=== PATIENT | male | born 1990 | race Caucasian/White ===

== ENCOUNTER 2022-10-03 16:51 | Emergency (ER) | payer SELFPAY ==
[2022-10-03] MEDS ORDERED: Acetaminophen/oxyCODONE 325-5 MG Tab PO ONE (16:56)
== END 2022-10-03 18:50 | disposition home or self-care (01) ==
LOC: MW.ED 16:51
DX: S97.81XA Crushing injury of right foot, initial encounter (principal); Z72.0 Tobacco use; W23.0XXA Caught, crushed, jammed, or pinched between moving objects, initial encounter
CPT/HCPCS: 73600; 73630; 99283; A9270

== ENCOUNTER 2023-02-04 17:37 | Emergency (ER) | payer SELFPAY ==
[2023-02-04] MEDS ORDERED: Acetaminophen 500 MG Tab PO STA (17:45)
[2023-02-04] MEDS ORDERED: Lidocaine 4% 1 each Patch TOP STA (17:47)
== END 2023-02-04 20:11 | disposition home or self-care (01) ==
LOC: MW.ED 17:37
DX: R07.89 Other chest pain (principal)
CPT/HCPCS: 71101; 99284; A9270; 99283

== ENCOUNTER 2023-03-01 12:52 | Emergency (ER) | payer SELFPAY ==
[2023-03-01] MEDS ORDERED: Acetaminophen 500 MG Tab PO STA (15:04)
[2023-03-01] MEDS ORDERED: Ibuprofen 800 MG Tab PO STA (15:04)
[2023-03-01] MEDS ORDERED: oxyCODONE 5 MG Tab PO STA (15:16)
[2023-03-01] MEDS ORDERED: Lidocaine 1% 5 ML VIAL INJECT STA (16:07)
== END 2023-03-01 17:28 | disposition home or self-care (01) ==
LOC: MW.ED 12:52
DX: S62.324A Displaced fracture of shaft of fourth metacarpal bone, right hand, initial encounter for closed fracture (principal); S62.326A Displaced fracture of shaft of fifth metacarpal bone, right hand, initial encounter for closed fracture; W22.8XXA Striking against or struck by other objects, initial encounter
CPT/HCPCS: 26605; 73120; 99283; A9270; J3490

== ENCOUNTER 2023-07-17 18:44 | Emergency (ER) | payer SELFPAY ==
[2023-07-17] MEDS ORDERED: Acetaminophen/oxyCODONE 325-10 MG Tab PO ONE (20:12)
== END 2023-07-17 20:48 | disposition home or self-care (01) ==
LOC: MW.ED 18:44
DX: S62.324 Displaced fracture of shaft of fourth metacarpal bone, right hand (principal); X58.XXXS Exposure to other specified factors, sequela
CPT/HCPCS: 73130; 99283; A9270

== ENCOUNTER 2023-10-23 01:41 | Emergency (ER) | payer SELFPAY ==
[2023-10-23] MEDS: Diphtheria,Pertussis(Acell),Tetanus Vaccine 0.5 ML Syringe IM ONE (01:48)
[2023-10-23] MEDS: Lidocaine 1% 5 ML VIAL INJECT ONE (02:17)
== END 2023-10-23 03:11 | disposition home or self-care (01) ==
LOC: MW.ED 01:41
DX: S61.411A Laceration without foreign body of right hand, initial encounter (principal); S61.412A Laceration without foreign body of left hand, initial encounter; Z23 Encounter for immunization; F10.120 Alcohol abuse with intoxication, uncomplicated; Z75.8 Other problems related to medical facilities and other health care; X58.XXXA Exposure to other specified factors, initial encounter
CPT/HCPCS: 12001; 12002; 731202650; 73120-50; 90471; 90715; 99283; 99283-25; J3490

== ENCOUNTER 2023-12-30 23:11 | Emergency (ER) | payer SELFPAY ==
[2023-12-31 00:37] LABS: BASOPHILS ABSOLUTE AUTO 0.08 K/uL (0.00-0.20); BASOPHILS PERCENT AUTO 0.8 % (0.0-1.0); EOSINOPHILS ABSOLUTE AUTO 0.29 K/uL (0.00-0.45); EOSINOPHILS PERCENT AUTO 2.8 % (0.0-6.0); HEMATOCRIT 45.1 % (42.0-52.0); IMMATURE GRAN ABSOLUTE AUTO 0.02 K/uL (0.00-0.05); IMMATURE GRAN PERCENT AUTO 0.2 % (0.0-0.4); LYMPHOCYTES ABSOLUTE AUTO 4.17 K/uL (1.00-4.80); LYMPHOCYTES PERCENT AUTO 39.8 % (24.0-44.0); MEAN CORPUSCULAR HEMOGLOBIN 33.2 pg (28.0-32.0); MEAN CORPUSCULAR HGB CONC 35.5 g/dL (32.0-36.0); MEAN CORPUSCULAR VOLUME 93.6 fL (83.0-99.0); MEAN PLATELET VOLUME 9.7 fL (9.4-12.4); MONOCYTES ABSOLUTE AUTO 0.48 K/uL (0.00-0.80); MONOCYTES PERCENT AUTO 4.6 % (0.0-8.0); NEUTROPHILS ABSOLUTE AUTO 5.43 K/uL (1.80-7.70); NEUTROPHILS PERCENT AUTO 51.8 % (41.0-71.0); PLATELET COUNT,PLT 268 K/uL (150-400); RED BLOOD CELL COUNT 4.82 M/uL (4.52-5.90); WHITE BLOOD CELL COUNT,WBC 10.47 K/uL (3.9-11.3)
[2023-12-31] MEDS: LORazepam 2 MG/ML SDV IVPUSH ONE ×2 (00:55→01:00)
[2023-12-31 00:58] LABS: D-DIMER QUANTITATIVE 0.22 mg/L FEU (0.00-0.50); INR 0.97 (0.86-1.11)
[2023-12-31 01:00] LABS: APPEARANCE,URINE CLEAR; BILIRUBIN,URINE NEGATIVE (NEGATIVE); COLOR,URINE YELLOW; GLUCOSE,URINE NEGATIVE (NEGATIVE); KETONES,URINE NEGATIVE (NEGATIVE); LEUKOCYTE ESTERASE,URINE NEGATIVE (NEGATIVE); NITRITE,URINE NEGATIVE (NEGATIVE); OCCULT BLOOD,URINE NEGATIVE (NEGATIVE); PROTEIN,URINE NEGATIVE (NEGATIVE); UROBILINOGEN,URINE 0.2 EU/dL (<2.0)
[2023-12-31] MEDS: Sodium Chloride 0.9% 1,000 ML IV ONE (01:00)
[2023-12-31] MEDS: Sodium Chloride 0.9% 2.5 ML Syringe FLUSH PRN (01:01)
[2023-12-31] MEDS: Sodium Chloride 0.9% 10 ML Syringe FLUSH PRN (01:01)
[2023-12-31 01:04] LABS: A/G RATIO 1.1 (0.9-1.6); ALANINE AMINOTRANSFERASE,ALT 30 IU/L (14-63); ALKALINE PHOSPHATASE 97 U/L (46-116); ASPARTATE AMNIOTRANSFERASE,AST 16 IU/L (15-37); BILIRUBIN TOTAL 0.2 mg/dL (0.2-1.0); BLOOD UREA NITROGEN,BUN 9 mg/dL (7.0-18.0); CARBON DIOXIDE,CO2 22.2 mmol/L (21.0-32.0); CHLORIDE,CL 102 mmol/L (98-107); CREATININE 0.9 mg/dL (0.8-1.3); ETHANOL BLOOD MEDICAL 249 mg/dL; GLUCOSE RANDOM 126 mg/dL (74-106); MAGNESIUM 1.9 mg/dL (1.8-2.4); POTASSIUM,K 3.7 mmol/L (3.5-5.1); PROTEIN TOTAL,TP 7.8 g/dL (6.4-8.2); SODIUM,NA 139 mmol/L (136-148)
[2023-12-31 01:10] LABS: ESTIMATED GFR 117 mL/min (>60)
[2023-12-31 01:10] LABS: AMPHETAMINES SCREEN, URINE NEGATIVE (CUTOFF=500); BARBITURATE SCREEN,URINE NEGATIVE (CUTOFF=200); BENZODIAZEPINES SCREEN,URINE NEGATIVE (CUTOFF=150); BUPRENORPHINE SCREEN,URINE NEGATIVE (CUTOFF=10); METHADONE SCREEN, URINE NEGATIVE (CUTOFF=200); METHAMPHETAMINES SCREEN, URINE NEGATIVE (CUTOFF=500); OXYCODONE SCREEN,URINE NEGATIVE (CUT0FF=100); PCP SCREEN,URINE NEGATIVE (CUTOFF=25); THC SCREEN,URINE 20 NG/ML PRESUMPTIVE POSITIVE (CUTOFF=50)
[2023-12-31 01:31] LABS: LACTIC ACID 1.8 mmol/L (0.4-2.0)
[2023-12-31] MEDS: Iopamidol 755 MG/ML 500 ML Multipack Bottle IVPUSH ONE (01:58)
== END 2023-12-31 02:40 | disposition home or self-care (01) ==
LOC: MW.ED 23:11
DX: F10.129 Alcohol abuse with intoxication, unspecified (principal); R55 Syncope and collapse; F17.210 Nicotine dependence, cigarettes, uncomplicated; Z88.6 Allergy status to analgesic agent
CPT/HCPCS: 36415; 71275; 80053; 80305; 80307; 81003; 83605; 83735; 84484; 85025; 85379; 85610; 86850; 86900; 86901; 96361; 96374; 99284; J2060; J3490; J7030; Q9967; 93010

== ENCOUNTER 2024-01-01 15:53 | Emergency (ER) | payer OTHER ==
[2024-01-01] MEDS ORDERED: Sodium Chloride 0.9% 20 ML SDV IV PRN (16:10)
[2024-01-01 16:20] LABS: BASOPHILS ABSOLUTE AUTO 0.05 K/uL (0.00-0.20); BASOPHILS PERCENT AUTO 0.6 % (0.0-1.0); EOSINOPHILS ABSOLUTE AUTO 0.11 K/uL (0.00-0.45); EOSINOPHILS PERCENT AUTO 1.4 % (0.0-6.0); HEMATOCRIT 45.3 % (42.0-52.0); IMMATURE GRAN ABSOLUTE AUTO 0.01 K/uL (0.00-0.05); IMMATURE GRAN PERCENT AUTO 0.1 % (0.0-0.4); LYMPHOCYTES ABSOLUTE AUTO 1.68 K/uL (1.00-4.80); MEAN CORPUSCULAR HEMOGLOBIN 32.9 pg (28.0-32.0); MEAN CORPUSCULAR HGB CONC 35.3 g/dL (32.0-36.0); MEAN PLATELET VOLUME 9.6 fL (9.4-12.4); MONOCYTES ABSOLUTE AUTO 0.44 K/uL (0.00-0.80); MONOCYTES PERCENT AUTO 5.5 % (0.0-8.0); NEUTROPHILS ABSOLUTE AUTO 5.72 K/uL (1.80-7.70); NEUTROPHILS PERCENT AUTO 71.4 % (41.0-71.0); PLATELET COUNT,PLT 233 K/uL (150-400); RED BLOOD CELL COUNT 4.87 M/uL (4.52-5.90); WHITE BLOOD CELL COUNT,WBC 8.01 K/uL (3.9-11.3)
[2024-01-01] MEDS: Iopamidol 755 MG/ML 500 ML Multipack Bottle IVPUSH STA (16:35)
[2024-01-01 16:51] LABS: INR 1.07 (0.86-1.11); PTT,PARTIAL THROMBOPLSTIN TIME 27.5 SEC (23.9-30.7)
[2024-01-01] MEDS: Sodium Chloride 0.9% 10 ML Syringe FLUSH PRN (16:52)
[2024-01-01] MEDS: Metoclopramide 10 MG/2 ML SDV IVPUSH ONE (16:52)
[2024-01-01] MEDS: Sodium Chloride 0.9% 1,000 ML IV ONE (16:52)
[2024-01-01] MEDS: diphenhydrAMINE 50 MG/ML SDV IVPUSH ONE (16:52)
[2024-01-01] MEDS: Sodium Chloride 0.9% 2.5 ML Syringe FLUSH PRN (16:52)
[2024-01-01] MEDS: Ondansetron 4 MG/2 ML SDV IVPUSH ONE (16:53)
[2024-01-01] MEDS: Ondansetron 4 MG/2 ML SDV ONE (16:53)
[2024-01-01 16:57] LABS: A/G RATIO 1.2 (0.9-1.6); ALANINE AMINOTRANSFERASE,ALT 24 IU/L (14-63); ALBUMIN 4.3 g/dL (3.4-5.0); ALKALINE PHOSPHATASE 100 U/L (46-116); ASPARTATE AMNIOTRANSFERASE,AST 17 IU/L (15-37); BILIRUBIN TOTAL 1.1 mg/dL (0.2-1.0); BLOOD UREA NITROGEN,BUN 14 mg/dL (7.0-18.0); CALCIUM 9.3 mg/dL (8.5-10.1); CARBON DIOXIDE,CO2 23.9 mmol/L (21.0-32.0); CHLORIDE,CL 99 mmol/L (98-107); EST CRCL DRUG DOSING (CG) 120.96 mL/min; ESTIMATED GFR 103 mL/min (>60); GLUCOSE RANDOM 94 mg/dL (74-106); POTASSIUM,K 3.9 mmol/L (3.5-5.1); SODIUM,NA 138 mmol/L (136-148)
[2024-01-01] MEDS: Magnesium Sulfate/Water 2 GM in Premix Bag 1 BAG IV ONE (17:44)
[2024-01-01] MEDS: droPERidol 5 MG/2 ML SDV IVPUSH ONE (17:44)
[2024-01-01] MEDS: Ketorolac 30 MG/ML SDV IVPUSH ONE (19:16)
== END 2024-01-01 20:43 ==
LOC: MW.ED 15:53
DX: R51.9 Headache, unspecified (principal); Z88.5 Allergy status to narcotic agent; Z88.6 Allergy status to analgesic agent
CPT/HCPCS: 36415; 70450; 70496; 70498; 71045; 80053; 82947; 84484; 85025; 85610; 85730; 86850; 86900; 86901; 93005; 96365; 96366; 96375; 99285; J1790; J1885; J2405; J2765; J3475; J3490; J7030; Q9967; J1200

== ENCOUNTER 2024-01-27 12:02 | Emergency (ER) | payer OTHER ==
[2024-01-27] MEDS: Ibuprofen 800 MG Tab PO ONE (13:02)
[2024-01-27] MEDS: Ondansetron 4 MG Tab.DIS PO STA (13:35)
== END 2024-01-27 15:38 ==
LOC: MW.ED 12:02
DX: S89.92XA Unspecified injury of left lower leg, initial encounter (principal); Z88.6 Allergy status to analgesic agent; X50.1XXA Overexertion from prolonged static or awkward postures, initial encounter; Y93.67 Activity, basketball
CPT/HCPCS: 73562; 99283; A9270

== ENCOUNTER 2024-05-17 10:41 | Emergency (ER) | payer MEDICAID ==
[2024-05-17] MEDS: Ibuprofen 800 MG Tab PO ONE (11:31)
[2024-05-17] MEDS: Acetaminophen 500 MG Tab PO ONE (11:32)
== END 2024-05-17 13:37 ==
LOC: MW.ED 10:41
DX: S60.221A Contusion of right hand, initial encounter (principal); I10 Essential (primary) hypertension; K21.9 Gastro-esophageal reflux disease without esophagitis; Z75.8 Other problems related to medical facilities and other health care; Z79.899 Other long term (current) drug therapy; W21.05XA Struck by basketball, initial encounter; Y93.67 Activity, basketball
CPT/HCPCS: 73110; 73130; 99283; A9270